=== PATIENT | female | born 1965 | race Caucasian/White ===

== ENCOUNTER → 2017-02-24 | Outpatient (CLI) | payer OTHER ==
--- NOTE | 2017-02-24 16:07 | REPMRS ---
Patient History The patient states she had a clinical breast exam in February 2017. Family history of unknown cancer in father at age 58, colorectal cancer in 2 maternal aunts under age 50, and colorectal cancer in maternal uncle at age 50 or over. Took hormonal contraceptives for 12 years. Digital Mammo Screening Bilat: February 24, 2017 - Exam #: [id number] Bilateral CC and MLO view(s) were taken. Technologist: Antoinette Anderson, Technologist Prior study comparison: February 19, 2016, bilateral digital mammo screening bilat performed at [facility]. March 06, 2015, right breast digital mammo diagnostic unilateral performed at [facility]. FINDINGS: The breast tissue is heterogeneously dense. This may lower the sensitivity of mammography. There has been no change in the appearance of the mammogram from the prior studies. There is a moderate amount of residual fibroglandular tissue which is fairly symmetric. There is no interval development of dominant mass, areas of architectural distortion, or clustered microcalcification typical of malignancy. ASSESSMENT: BI-RADS/ACR category 1 mammogram. Negative. Recommendation Routine screening mammogram in 1 year (for women over age 40). This mammogram was interpreted with the aid of an FDA-approved computer-aided dectection system. Electronically Signed By: Wilberto Lanier MD 02/24/17 [id number]
== END ==
LOC: M RAD 12:44
PROVIDERS: ATTEND Obstetrics & Gynecology
DX: Z12.31 Encounter for screening mammogram for malignant neoplasm of breast (principal); Z92.0 Personal history of contraception; Z80.0 Family history of malignant neoplasm of digestive organs

== ENCOUNTER → 2017-07-21 | Outpatient (CLI) | payer OTHER ==
[2017-07-21 16:57] LABS: PROGESTERONE 0.2 NG/ML
[2017-07-21 16:57] LABS: ESTRADIOL 77.1 PG/ML; FOLLICLE STIMULATING HORMONE 45.9 mIU/mL; LUTEINIZING HORMONE 56.9 mIU/mL
[2017-07-24 00:06] LABS: TESTOSTERONE FREE (DIRECT) 1.2 pg/mL (0.0-4.2)
== END ==
LOC: M LRY 10:38
DX: N95.1 Menopausal and female climacteric states (principal)
CPT/HCPCS: 83001

== ENCOUNTER 2017-09-15 08:04 | Day surgery (SDC) | payer OTHER ==
[2017-09-15] MEDS: NS 1,000 ML IV (09:08)
[2017-09-15] MEDS ORDERED: PROPOFOL 200 MG/20 ML VIAL As Ordered ×2 (09:44)
== END 2017-09-15 10:33 | disposition home or self-care (01) ==
LOC: M OPP 08:04
DX: Z12.11 Encounter for screening for malignant neoplasm of colon (principal); Z86.010 Personal history of colon polyps; K57.30 Diverticulosis of large intestine without perforation or abscess without bleeding; K64.8 Other hemorrhoids; Z88.8 Allergy status to other drugs, medicaments and biological substances; Z79.899 Other long term (current) drug therapy; Z80.0 Family history of malignant neoplasm of digestive organs
CPT/HCPCS: 45378

== ENCOUNTER → 2017-11-26 | Outpatient (CLI) | payer OTHER ==
[2017-11-26 21:26] LABS: ESTRADIOL 72.4 PG/ML
[2017-11-26 21:27] LABS: FOLLICLE STIMULATING HORMONE 38.4 mIU/mL
[2017-11-27 08:56] LABS: PROGESTERONE < 0.2 NG/ML
[2017-11-29 00:05] LABS: TESTOSTERONE FREE (DIRECT) 1.6 pg/mL (0.0-4.2)
== END ==
LOC: M LRY 16:44
DX: N95.1 Menopausal and female climacteric states (principal); E34.9 Endocrine disorder, unspecified; R53.83 Other fatigue
CPT/HCPCS: 83001

== ENCOUNTER → 2018-01-15 | Outpatient (CLI) | payer OTHER ==
[2018-01-15 20:52] LABS: TESTOSTERONE 282 NG/DL (14-76)
[2018-01-15 20:53] LABS: PROGESTERONE < 0.2 NG/ML
[2018-01-15 20:54] LABS: ESTRADIOL 143.5 PG/ML; FOLLICLE STIMULATING HORMONE 18.3 mIU/mL
== END ==
LOC: M LRY 15:59
DX: N95.1 Menopausal and female climacteric states (principal)
CPT/HCPCS: 83001

== ENCOUNTER → 2018-03-24 | Outpatient (CLI) | payer OTHER ==
[2018-03-24 21:54] LABS: ESTRADIOL 143.9 PG/ML; FOLLICLE STIMULATING HORMONE 25.3 mIU/mL; LUTEINIZING HORMONE 30.1 mIU/mL
[2018-03-24 21:54] LABS: PROGESTERONE 0.59 NG/ML
[2018-03-27 00:56] LABS: TESTOSTERONE FREE (DIRECT) 1.9 pg/mL (0.0-4.2)
== END ==
LOC: M LRY 15:34
DX: N95.1 Menopausal and female climacteric states (principal); E34.9 Endocrine disorder, unspecified; R53.83 Other fatigue
CPT/HCPCS: 83001

== ENCOUNTER 2023-01-17 08:49 | Day surgery (SDC) | payer OTHER ==
[~2023-01-17] VITALS: Ht 154.9 cm; Wt 71.6 kg
[~2023-01-17 08:49] MED LIST: CHOL50003 PO; CVS2500C PO; NS 1,000 ML IV ONE; VITA200016 PO; ZYRT10CA5 PO; ZYRTTAB8 PO
[2023-01-17] MEDS ORDERED: propofoL 200 MG/20 ML VIAL As Ordered ONE (10:03)
[2023-01-17] MEDS ORDERED: LIDOCAINE 2% 100MG/5ML SDV (FOR ANES.) As Ordered ONE (10:03)
[2023-01-17 10:23] VITALS: TEMP 97.6
[2023-01-17 10:45] VITALS: BP 141/84; O2SAT 97
== END 2023-01-17 10:53 | disposition home or self-care (01) ==
LOC: M OPP 08:49
PROVIDERS: ATTEND Internal Medicine Gastroenterology
DX: K57.30 Diverticulosis of large intestine without perforation or abscess without bleeding (principal); K64.8 Other hemorrhoids; Z80.0 Family history of malignant neoplasm of digestive organs; Z86.010 Personal history of colon polyps